=== PATIENT | male | born 1955 | race Caucasian/White ===

== ENCOUNTER 2017-10-03 22:25 | Emergency (ER) | payer BC ==
[~2017-10-03] VITALS: Ht 177.8 cm; Wt 117.9 kg
[2017-10-03] MEDS ORDERED: LIDOCAINE JELLY 2% 10ML URO-JET TOP ONE (22:45)
[2017-10-04 00:30] LABS: BILIRUBIN,URINE NEGATIVE (NEGATIVE); KETONES,URINE NEGATIVE (NEGATIVE); LEUKOCYTE ESTERASE ,URINE NEGATIVE (NEGATIVE); NITRITE,URINE NEGATIVE (NEGATIVE); URINE UROBILINOGEN 0.2 mg/dL (0.2 - 1)
[2017-10-04 00:32] LABS: CLARITY,URINE CLEAR (CLEAR); COLOR,URINE YELLOW (YELLOW); PROTEIN,URINE DIPSTICK 2+ (NEGATIVE)
[2017-10-04 00:41] LABS: BACTERIA,URINE FEW /HPF; EPITHELIAL CELLS,URINE RARE /LPF; RBC,URINE 21-50 /HPF (0-5)
== END 2017-10-04 01:04 | disposition home or self-care (01) ==
LOC: ER 22:25
DX: R33.0 Drug induced retention of urine (principal); N40.1 Benign prostatic hyperplasia with lower urinary tract symptoms; E11.9 Type 2 diabetes mellitus without complications; Z85.528 Personal history of other malignant neoplasm of kidney
CPT/HCPCS: 81001; 87086; 99283